=== PATIENT | female | born 1990 | race Caucasian/White ===

== ENCOUNTER 2020-02-14 01:23 | Outpatient (CLI) | payer OTHER ==
[2020-02-14] MEDS ORDERED: IRON236 MG (04:03)
== END 2020-02-14 15:00 | disposition home or self-care (01) ==
LOC: OBS/DEL 01:23
PROVIDERS: ATTEND Obstetrics & Gynecology
DX: O76 Abnormality in fetal heart rate and rhythm complicating labor and delivery (principal)

== ENCOUNTER 2020-02-27 21:59 | Inpatient (IN) | payer OTHER ==
[~2020-02-27] VITALS: Ht 152.4 cm; Wt 65.3 kg
[~2020-02-27 21:59] MED LIST: IRON236 MG
[2020-02-28] MEDS ORDERED: PRENATAL CAPLE1 EAC1 PO (15:09)
== END 2020-03-01 14:07 | disposition home or self-care (01) | DRG 807 ==
LOC: OBS/DEL 21:59 → OB/GYN 02-28 10:34 → OBS/DEL 02-28 10:34 → LDR 02-28 10:34 → OB/GYN 02-28 18:41
PROVIDERS: ADMIT Obstetrics & Gynecology; ATTEND Obstetrics & Gynecology
PROC: 10E0XZZ Delivery of Products of Conception, External Approach (ICD-10-PCS; principal; 2020-02-28)
PROC: 10907ZC Drainage of Amniotic Fluid, Therapeutic from Products of Conception, Via Natural or Artificial Opening (ICD-10-PCS; 2020-02-28)
PROC: 4A1HXFZ Monitoring of Products of Conception, Cardiac Rhythm, External Approach (ICD-10-PCS; 2020-02-28)
DX: O80 Encounter for full-term uncomplicated delivery (principal); Z37.0 Single live birth; Z3A.38 38 weeks gestation of pregnancy; Z20.828 Contact with and (suspected) exposure to other viral communicable diseases